=== PATIENT | female | born 1995 | race African-American/Black ===

== ENCOUNTER 2016-11-17 12:05 | Emergency (ER) | payer MEDICAID, OTHER ==
[~2016-11-17] VITALS: Ht 167.6 cm; Wt 61.5 kg
[~2016-11-17 12:05] MED LIST: CIPR500T4 PO; ELEC100080 PO; LOPE2CAP PO; ONDA4TAB8 PO
[2016-11-17 12:08] VITALS: Ht 167.6 cm; Wt 61.5 kg
[2016-11-17 12:55] LABS: ADD SCAN DIFF NO
[2016-11-17 12:59] LABS: ABNORMAL IP MESSAGE 1; BASOPHILS % 0.7 % (0.0-2.0); EOSINOPHILS % 0.7 % (0.0-7.0); HEMATOCRIT 35.3 % (37.0-47.0); HEMOGLOBIN 12.2 g/dl (12.0-16.0); LYMPHOCYTES % 45.7 % (15.0-51.0); MEAN CORPUSCULAR HEMOGLOBIN 30.7 pg (29.0-33.0); MEAN CORPUSCULAR HGB CONC 34.6 g/dl (32.0-37.0); MEAN CORPUSCULAR VOLUME 88.9 fl (82.0-101.0); MEAN PLATELET VOLUME 12.9 fl (7.4-10.4); MONOCYTE # 0.2 10^3/ul (0.3-0.9); MONOCYTES % 4.6 % (0.0-11.0); NEUTROPHIL # 2.1 10^3/ul (1.6-7.5); NEUTROPHILS % 48.1 % (39.0-77.0); PLATELET COUNT 114 10^3/UL (140-415); RED BLOOD COUNT 3.97 10^6/ul (4.20-5.40); RED CELL DISTRIBUTION WIDTH 13.4 % (11.5-14.5); WHITE BLOOD COUNT 4.3 10^3/ul (4.8-10.8)
[2016-11-17 12:59] LABS: ADD UMIC YES; URINE BILIRUBIN (Dip) NEGATIVE (NEGATIVE); URINE BLOOD (Dip) NEGATIVE (NEGATIVE); URINE COLOR LT. YELLOW (YELLOW); URINE GLUCOSE (Dip) NEGATIVE (NEGATIVE); URINE KETONES (Dip) NEGATIVE (NEGATIVE); URINE LEUKOCYTE ESTERASE (Dip) NEGATIVE (NEGATIVE); URINE NITRITE (Dip) POSITIVE (NEGATIVE); URINE TOTAL PROTEIN (Dip) NEGATIVE (NEGATIVE); URINE UROBILINOGEN (Dip) 1.0 E.U./dL (0.1-1.0)
[2016-11-17 13:14] LABS: BACTERIA,URINE MANY; URINE RBCS 0-2 /HPF (0)
[2016-11-17 13:26] LABS: ALBUMIN 4.7 g/dl (3.3-4.9); ALBUMIN/GLOBULIN RATIO 1.8; BILIRUBIN,INDIRECT 0.7 mg/dl (0-1.1); BILIRUBIN,TOTAL 0.7 mg/dl (0.2-1.3); CALCIUM 9.3 mg/dl (8.4-10.2); CREATININE 0.89 mg/dl (0.44-1.00); POTASSIUM 3.7 mmol/L (3.5-5.1); TOTAL PROTEIN 7.3 g/dl (6.1-8.1)
--- NOTE | 2016-11-17 13:44 | ERD ---
ER Documentation Chief Complaint Date/Time DATE: 11/17/16 TIME: 13:42 Chief Complaint Flank pain HPI 20-year-old female who is 3 approximately 4-5 weeks comes emergency department with right-sided flank pain that started 3 days ago. She states that it started suddenly, has gradually decreasing pain and she also has right-sided pelvic pain. She was seen by an outside facility who referred to emergency department for evaluation of the as well as for an ultrasound the kidneys. She denies any hematuria, vaginal bleeding. She denies dysuria, urgency or frequency. No fevers or chills. ROS All systems reviewed and are negative except as per history of present illness. Medications Home Meds Active Scripts Cephalexin* (Keflex*) 500 Mg Capsule, 500 MG PO TID for 7 Days, CAP Prov:ERYN HDZ PA-C 11/17/16 Loperamide Hcl* (Imodium*) 2 Mg Capsule, 2 MG PO .WITH EACH DIARRHEA Y for DIARRHEA for 3 Days, CAP MAX 16 mg/day Prov:COLLETTE TEJADA 01/29/16 Ciprofloxacin Hcl* (Ciprofloxacin Hcl*) 500 Mg Tablet, 500 MG PO BID for 5 Days , #14 TAB Prov:COLLETTE TEJADA 01/29/16 Electrolyte,Oral (Pedialyte) 1,000 Ml Solution, 100 ML PO Q6 Y for DIARRHEA for 3 Days, ML Prov:COLLETTE TEJADA 01/29/16 Ondansetron Hcl* (Zofran*) 4 Mg Tablet, 4 MG PO Q6H for NAUSEA AND/OR VOMITING, #30 TAB Prov:COLLETTE TEJADA 01/29/16 Allergies Allergies: Coded Allergies: No Known Allergy (Verified Allergy, Unknown, 03/02/11) PMhx/Soc History of Surgery: No Anesthesia Reaction: No Hx Neurological Disorder: No Hx Respiratory Disorders: No Hx Cardiac Disorders: Yes (HTN ) Hx Psychiatric Problems: No Hx Miscellaneous Medical Probl: No Hx Alcohol Use: No Hx Substance Use: No Hx Tobacco Use: Yes Smoking Status: Current every day smoker Physical Exam Vitals Vital Signs Date Time Temp Pulse Resp B/P Pulse Ox O2 Delivery O2 Flow Rate FiO2 11/17/16 12:08 97.3 77 20 103/57 98 Physical Exam General: Well-developed, well-nourished. The patient appears in no acute distress. HEENT: Head is normocephalic, atraumatic. No scleral icterus. Neck: Supple. Nontender. Lungs: Clear to auscultation. Normal air movement. Heart: Regular rate and rhythm. S1 and S2 are normal. No murmurs, gallops, or rubs. Abdomen: Soft, McBurney's nontender, there is tenderness in the right pelvic region, without rebound pain, no masses nondistended. Bowel sounds are normoactive. No CVA tenderness. Extremities: No clubbing or cyanosis. Normal pulses. Moving extremities x 4. No weakness. Neurologic: Alert and oriented 3. No focal deficits. Skin: Normal turgor. No rash or lesions. Result Diagram: 11/17/16 1236 11/17/16 1236 Results 24 hrs Laboratory Tests Test 11/17/16 12:36 11/17/16 12:38 White Blood Count 4.310^3/ul Red Blood Count 3.9710^6/ul Hemoglobin 12.2g/dl Hematocrit 35.3% Mean Corpuscular Volume 88.9fl Mean Corpuscular Hemoglobin 30.7pg Mean Corpuscular Hemoglobin Concent 34.6g/dl Red Cell Distribution Width 13.4% Platelet Count 21624^3/UL Mean Platelet Volume 12.9fl Neutrophils % 48.1% Lymphocytes % 45.7% Monocytes % 4.6% Eosinophils % 0.7% Basophils % 0.7% Nucleated Red Blood Cells % 0.0/100WBC Neutrophils # 2.110^3/ul Lymphocytes # 2.010^3/ul Monocytes # 0.210^3/ul Eosinophils # 0.010^3/ul Basophils # 0.010^3/ul Nucleated Red Blood Cells # 0.010^3/ul Sodium Level 145mmol/L Potassium Level 3.7mmol/L Chloride Level 109mmol/L Carbon Dioxide Level 25mmol/L Anion Gap 15 Blood Urea Nitrogen 11mg/dl Creatinine 0.89mg/dl Glucose Level 74mg/dl Calcium Level 9.3mg/dl Total Bilirubin 0.7mg/dl Direct Bilirubin 0.00mg/dl Indirect Bilirubin 0.7mg/dl Aspartate Amino Transf (AST/SGOT) 20IU/L Alanine Aminotransferase (ALT/SGPT) 30IU/L Alkaline Phosphatase 44IU/L Total Protein 7.3g/dl Albumin 4.7g/dl Globulin 2.60g/dl Albumin/Globulin Ratio 1.80 Lipase 72U/L Beta HCG, Quantitative 751.0mIU/ml Urine Color LT. YELLOW Urine Clarity CLEAR Urine pH 6.0 Urine Specific [place] 1.025 Urine Ketones NEGATIVE Urine Nitrite POSITIVE Urine Bilirubin NEGATIVE Urine Urobilinogen 1.0 E.U./dL Urine Leukocyte Esterase NEGATIVE Urine Microscopic RBC 0-2/HPF Urine Microscopic WBC 2-5/HPF Urine Epithelial Cells FEW Urine Bacteria MANY Urine Hemoglobin NEGATIVE Urine Glucose NEGATIVE% Urine Total Protein NEGATIVE Current Medications Medications (Trade) Dose Ordered Sig/Brad Route PRN Reason Start Time Stop Time Status Last Admin Dose Admin Ceftriaxone Sodium (Rocephin) 1 gm ONCE ONCE IM 11/17/16 14:00 11/17/16 14:01 DC 11/17/16 14:22 Lidocaine (Xylocaine 1% (Mdv) 20 ml) 2 ml ONCE ONCE IM 11/17/16 14:00 11/17/16 14:01 DC 11/17/16 14:23 PROCEDURE: US Pelvis/OB. CLINICAL INDICATION: vaginal bleeding TECHNIQUE: Multiple sonographic images of the pelvis were obtained utilizing a transabdominal and endovaginal technique. The images were reviewed on a PACS workstation. COMPARISON: None. FINDINGS: There is a small cystic structure within the endometrium measuring 0.3 cm which would correspond to a calculated gestational age of 5 weeks and 0 days. No pole or yolk sac is yet visualized. The right ovary measures 2.3 x 2.5 x 3.7 cm. There is a 2.5 cm simple cyst in the right ovary. The left ovary measures 2.3 x 2.7 x 1.8 cm. There is a small amount of free fluid in the cul-de-sac. RPTAT: AA IMPRESSION: Questionable early intrauterine at 5 weeks and 0 days. Close followup ultrasound and hCG is recommended. Simple cyst in the right ovary. Small amount of free fluid in the cul-de-sac. .James Lazo MD, MD Date Time Electronically viewed and signed by .James Lazo MD, MD on 11/17/2016 14: 42 .S/ CC: ERYN HDZ PA-C PROCEDURE: Retroperitoneal US. CLINICAL INDICATION: Right flank pain TECHNIQUE: Multiple sonographic images of the retroperitoneum were obtained. The images were reviewed on a PACS workstation. COMPARISON: No prior studies are available for comparison. FINDINGS: The right kidney measures 9.5 cm. The left kidney measures 9.7 cm. The renal parenchymal echotexture is normal. There is no hydronephrosis. There is no focal renal mass or calcification seen. The bladder is underdistended which limits evaluation though grossly unremarkable. IMPRESSION: Unremarkable retroperitoneal sonogram. No hydronephrosis bilaterally. RPTAT: EE Physician Storm Date Time Electronically viewed and signed by Physician Storm on 11/17/2016 13:52 RA/ Procedures/MDM 20-year-old female comes in with right-sided flank pain, she is currently likely an early . Patient's hCG was less than 800, there was a right ovarian cyst, possible intrauterine gestational sac seen, no pole or yolk sac. There is no confirm intrauterine at this time, cannot rule out ectopic . This was discussed at length with the patient, she understands that she is to recheck in 1-2 days. Her urine does show nitrite positive urine, which can explain her flank pain, she was given Rocephin 1 g IM in the emergency department will be continued on Keflex. She does not show any clinical signs of sepsis, dehydration, or toxic appearance. At this time, all ER return precautions were discussed at length and she understands that she is to return sooner if any worsening or new symptoms. This patient is stable for outpatient management. Departure Diagnosis: Primary Impression: UTI (urinary tract infection) Additional Impressions: Pelvic pain Positive blood test Condition: Good ERYN HDZ PA-C Nov 17, 2016 13:44
--- NOTE | 2016-11-17 13:52 | RADRPT ---
PROCEDURE: Retroperitoneal US. CLINICAL INDICATION: Right flank pain TECHNIQUE: Multiple sonographic images of the retroperitoneum were obtained. The images were revi ewed on a PACS workstation. COMPARISON: No prior studies are available for comparison. FINDINGS: The right kidney measures 9.5 cm. The left kidney measures 9.7 cm. The renal parenchymal echotexture is normal. There is no hydronephrosis. There is no focal renal mass or calcification seen. The bladder is underdistended which limits evaluation though grossly unremarkable. IMPRESSION: Unremarkable retroperitoneal sonogram. No hydronephrosis bilaterally. RPTAT: EE Physician Storm Date Time Electronically viewed and signed by Physician Storm on 11/17/2016 13:52 /
[2016-11-17] MEDS ORDERED: CEFTRIAXONE 1 GM INJ IM ONE (14:00)
[2016-11-17] MEDS ORDERED: LIDOCAINE 1% (MDV) 20 ML INJ IM ONE (14:00)
--- NOTE | 2016-11-17 14:43 | RADRPT ---
PROCEDURE: US Pelvis/OB. CLINICAL INDICATION: vaginal bleeding TECHNIQUE: Multiple sonographic images of the pelvis were obtained utilizing a transabdominal and endovaginal technique. The images were reviewed on a PACS workstation. COMPARISON: None. FINDINGS: There is a small cystic structure within the endometrium measuring 0.3 cm which would correspond to a calculated gestational age of 5 weeks and 0 days. No pole or yolk sac is yet visualized. The right ovary measures 2.3 x 2.5 x 3.7 cm. There is a 2.5 cm simple cyst in the right ovary. The left ovary measures 2.3 x 2.7 x 1.8 cm. There is a small amount of free fluid in the cul-de-sac. RPTAT: AA IMPRESSION: Questionable early intrauterine at 5 weeks and 0 days. Close followup ultrasound and hCG is recommended. Simple cyst in the right ovary. Small amount of free fluid in the cul-de-sac. .James Lazo MD, MD Date Time Electronically viewed and signed by .James Lazo MD, on 11/17/2016 14:42 .S/
[2016-11-17] MEDS ORDERED: CEPH-443 PO (15:05)
== END 2016-11-17 15:12 | disposition home or self-care (01) ==
LOC: FTE 12:05
DX: O23.41 Unspecified infection of urinary tract in pregnancy, first trimester (principal); R10.2 Pelvic and perineal pain; O10.011 Pre-existing essential hypertension complicating pregnancy, first trimester; O99.331 Smoking (tobacco) complicating pregnancy, first trimester; F17.210 Nicotine dependence, cigarettes, uncomplicated; Z3A.01 Less than 8 weeks gestation of pregnancy
CPT/HCPCS: 36415; 76775; 76801; 76817; 80053; 81001; 83690; 84702; 85025; 96372; J0696; Z7502; Z7610

== ENCOUNTER 2017-04-18 13:49 | Outpatient (CLI) | END 2017-04-18 16:47 | disposition home or self-care (01) ==

== ENCOUNTER 2017-04-30 22:08 | Outpatient (CLI) | payer OTHER ==
--- NOTE | 2017-04-18 17:19 | PN ---
Triage Information Date/Time April 19, 2017 Reason for visit: Nausea and vomiting, constipation that turned to diarrhea and currently resolved Weeks of Gestation 21-year-old with IUP at 26 weeks and 2 days with care at outside facility presents with a complaint of nausea and vomiting and constipation that currently resolved. Reports constipation was 2 days ago and then subsequently had diarrhea and resolved. Denies any fever or chills. Denies any vaginal bleeding, leaking of fluid or abnormal uterine bleeding. Denies any decreased movement or any obstetrical problem. /Para 3 para 1 Diabetes: none Hypertention: none Objective Heart Rate: 130's Contractions: None Exam GA: A&O, NAD Abdomen: soft, Non tender no rebound tenderness, no guarding no rigidity, no evidence of acute abdomen Fundal height consistent with gestational age No CVA tenderness No suprapubic tenderness NST: Appropriate for gestational age no contraction palpable or seen on the monitor Results/Medications Imaging Results PROCEDURE: Limited obstetric ultrasound CLINICAL INDICATION: Pain , labor TECHNIQUE: Multiple transverse and longitudinal grayscale images of the pelvis were obtained transabdominally and transvaginally.. COMPARISON: None FINDINGS: The cervix is closed with a length of 4.5 cm. There is a single viable intrauterine gestation. Cardiac activity is present with 144 beats per minute. There is a vertex presentation. The placenta is anterior. There is no evidence for an abruption or placenta previa. RPTAT: AA IMPRESSION: Cervix length measures 4.5 cm. PROCEDURE: Retroperitoneal US. CLINICAL INDICATION: Right flank pain TECHNIQUE: Multiple sonographic images of the retroperitoneum were obtained. The images were reviewed on a PACS workstation. COMPARISON: No prior studies are available for comparison. FINDINGS: The right kidney measures 9.5 cm. The left kidney measures 9.7 cm. The renal parenchymal echotexture is normal. There is no hydronephrosis. There is no focal renal mass or calcification seen. The bladder is underdistended which limits evaluation though grossly unremarkable. IMPRESSION: Unremarkable retroperitoneal sonogram. No hydronephrosis bilaterally. RPTAT: EE Disposition: Discharge Assessment/Plan IUP at 26 weeks and 2 days Nausea and vomiting with diarrhea. Likely related to viral gastroenteritis Diarrhea resolved Labs are normal and unremarkable No obstetrical issue No evidence of labor Patient received Zofran, could tolerate p.o. will be discharged home with Zofran prescription Strict labor precaution and kick counts and follow-up with OB clinic within 24-48 hours and adequate hydration discussed with the patient Patient verbalized understanding Return to triage as needed any other problem JAQUELINE WYMAN MD Apr 18, 2017 17:19
[~2017-04-30] VITALS: Ht 162.6 cm; Wt 69.4 kg
[2017-04-30 22:18] VITALS: Ht 162.6 cm; Wt 69.4 kg
--- NOTE | 2017-04-30 22:52 | RADRPT ---
PROCEDURE: OB ultrasound CLINICAL INDICATION: Labor TECHNIQUE: Multiple transverse and longitudinal OB images of the pelvis were obtained. The images were reviewed on a high-resolution PACS workstation. COMPARISON: None FINDINGS: A single live intrauterine is seen. The presentation is vertex. The placenta is grade 1 a nd anterior in location. No evidence of placenta abruption or previa is seen. The heart rate i s 135 beats per minute. The amniotic fluid index is 14.7 cm. movement 2 tone 2 breathing 2 Amniotic fluid 2 IMPRESSION: Biophysical profile of 01/16. RPTAT: HPNM Physician Didi Date Time Electronically viewed and signed by Physician Didi on 04/30/2017 22:51 /
--- NOTE | 2017-04-30 22:53 | RADRPT ---
PROCEDURE: US OB. CLINICAL INDICATION: Labor TECHNIQUE: Multiple sonographic images of the pelvis were obtained. The images were reviewed on a PACS workstation. COMPARISON: No prior studies are available for comparison. FINDINGS: There is a single viable intrauterine gestation. Cardiac activity is present with 137 beats per min barbie. There is a vertex presentation. Measurements were made in order to determine age. The results are as follows: BPD =7.3 cm HC =26.7 cm AC =26.4 cm FL =5.4 cm. Estimated gestational age of approximately 28 weeks and 0-day. The estimated date of delivery is 07/13/2017. The EFW = 1446 grams. The placenta is anterior. There is no evidence for an abruption or placenta previa. There are no adnexal masses. IMPRESSION: Single live intrauterine with an estimated gestational age of 28 weeks and 0-day. RPTAT: HPNM Physician Didi Date Time Electronically viewed and signed by Physician Didi on 04/30/2017 22:53 /
[2017-05-01 00:45] LABS: ADD UMIC NO; UR ASCORBIC ACID NEGATIVE (NEGATIVE); UR BILIRUBIN (Dip) NEGATIVE (NEGATIVE); UR BLOOD (Dip) NEGATIVE (NEGATIVE); UR CLARITY CLEAR (CLEAR); UR COLOR STRAW (YELLOW); UR GLUCOSE (Dip) NEGATIVE (NEGATIVE); UR KETONES (Dip) NEGATIVE (NEGATIVE); UR LEUKOCYTE ESTERASE (Dip) NEGATIVE Leu/ul (NEGATIVE); UR NITRITE (Dip) NEGATIVE (NEGATIVE); UR SPECIFIC GRAVITY (Dip) 1.002 (1.003-1.030); UR TOTAL PROTEIN (Dip) NEGATIVE (NEGATIVE); UR UROBILINOGEN (Dip) NEGATIVE (NEGATIVE)
[2017-05-01] MEDS ORDERED: PREN1TAB79 PO (01:54)
[2017-05-01 02:19] LABS: BARBITURATES Negative (NEGATIVE); BENZODIAZEPINES Negative (NEGATIVE); CANNABINOIDS Positive (NEGATIVE); COCAINE Negative (NEGATIVE); OPIATES Negative (NEGATIVE)
--- NOTE | 2017-05-01 03:23 | TRIAGE ---
OB Triage Datetime Report Generated by CPN: 05/01/2017 03:23 Datetime: 05/01/2017 02:55 Stage of : OB Triage Datetime: 05/01/2017 02:45 Stage of : OB Triage Datetime: 05/01/2017 02:43 Stage of : OB Triage Labor Evaluation Frequency: OCC Monitor Mode: External Duration (sec)2399: 60 Quality: Mild Pattern: Normal: <= 5 Contractions in 10 Minutes Heart Rate FHR Baseline Rate: 135 Monitor Mode: External US Variability: Moderate 6-25 bpm Accelerations: 15X15 Decelerations: None Datetime: 05/01/2017 02:40 Stage of : OB Triage Datetime: 05/01/2017 02:10 Stage of : OB Triage Labor Evaluation Frequency: X5 Monitor Mode: External Duration (sec)2399: 60-80 Quality: Mild Pattern: Normal: <= 5 Contractions in 10 Minutes Resting Tone [place]: Relaxed Heart Rate FHR Baseline Rate: 135 Variability: Moderate 6-25 bpm Accelerations: 15X15 Decelerations: None Category: Category I Datetime: 05/01/2017 02:08 Monitor Mode: External Monitor Mode: External US Datetime: 05/01/2017 01:15 Stage of : OB Triage Labor Evaluation Frequency: OCCA Monitor Mode: External Duration (sec)2399: 60 Heart Rate FHR Baseline Rate: 135 Variability: Moderate 6-25 bpm Accelerations: 10X10 Comments: APPROPRIATE FOR GESTATIONAL AGE Datetime: 04/30/2017 23:52 Labor Evaluation Frequency: IRRITABILITY NOTED Heart Rate FHR Baseline Rate: 135 Variability: Moderate 6-25 bpm Accelerations: 15X15 Comments: DIFFICULTY MONITORING BABY D/T INCREASE MOVEMENT. Datetime: 04/30/2017 22:35 Stage of : OB Triage Labor Evaluation Frequency: X1 Monitor Mode: External Duration (sec)2399: 120 Resting Tone [place]: Relaxed Heart Rate FHR Baseline Rate: 135 Monitor Mode: External US Variability: Moderate 6-25 bpm Accelerations: 15X15 Decelerations: None Comments: APPROPRIATE FOR GESTATIONAL AGE Datetime: 04/30/2017 22:25 Time of Arrival: 04/30/2017 21:52 EGA: 28.0 Arrived By: Wheelchair Arrived From: Home Chief Complaint: VAGINAL PAIN AFTER SEX, VAGINAL IRRITATION AND SWELLING Movement: Present Contractions: Occasional Rupture of Membranes: Denies Vaginal Discharge: Denies Recent Sexual Intercouse: Yes Abdominal Trauma: Not Applicable Patient Complaints: Other Time Provider Notified: 04/30/2017 22:17 Provider Notified: DR. MALONE Initial Plan: EFM, CALL OB Datetime: 04/30/2017 22:15 Stage of : OB Triage Assessment Type: Triage Maternal Assessment Level of Consciousness: Fully Conscious DTR's/Clonus: DTRs 2+; No Clonus Headache: Denies Blurred Vision: No Respiratory Effort: Unlabored; Regular Rhythm; Equal Expansion Breath Sounds, Left: Clear and Equal Breath Sounds, Right: Clear and Equal Nausea/Vomiting: Denies RUQ Epigastric Pain: Denies Lower Extremities Edema: None Degree: None Upper Extremities Edema: None Degree: None Facial Edema: None Temperature Route: Oral Fall Risk Assessment History of Falling: (0) No Secondary Diagnosis: (0) No Ambulatory Aid: (0) Bedrest/Nurse Assist IV Therapy: (0) No Gait: (0) Normal/Bedrest/Immobile Mental Status: (0) Oriented to Own Ability Fall Score: 0 Fall Risk Score Definition: No Risk: No action required Pain Assessment Pain Scale: 7 Pain Presence: Constant Pain Location: VAGINAL PAIN Pain Relief Measures: Comfort Measures Datetime: 04/30/2017 22:09 Contraction Comments: APPLIED Comments: APPLIED Datetime: 04/18/2017 16:01 Stage of : OB Triage Maternal Assessment Level of Consciousness: Fully Conscious Labor Evaluation Frequency: NONE Monitor Mode: External Resting Tone [place]: Relaxed Heart Rate FHR Baseline Rate: 135 Monitor Mode: External US Variability: Moderate 6-25 bpm Accelerations: 15X15 Decelerations: None Pain Assessment Pain Scale: 0 Pain Goal: 3 Vaginal Exam Membrane Status: Intact Vaginal Bleeding: None Datetime: 04/18/2017 14:43 Stage of : OB Triage Maternal Assessment Level of Consciousness: Fully Conscious Labor Evaluation Frequency: NONE Monitor Mode: External Resting Tone [place]: Relaxed Heart Rate FHR Baseline Rate: 135 Monitor Mode: External US Variability: Moderate 6-25 bpm Accelerations: 15X15 Decelerations: None Pain Assessment Pain Scale: 0 Pain Goal: 3 Vaginal Exam Membrane Status: Intact Vaginal Bleeding: None Datetime: 04/18/2017 14:02 Assessment Type: Triage Maternal Assessment Level of Consciousness: Fully Conscious DTR's/Clonus: DTRs 2+; No Clonus Headache: Denies Blurred Vision: No Respiratory Effort: Unlabored; Regular Rhythm; Equal Expansion Breath Sounds, Left: Clear and Equal Breath Sounds, Right: Clear and Equal Nausea/Vomiting: Denies RUQ Epigastric Pain: Denies Lower Extremities Edema: None Degree: None Upper Extremities Edema: None Degree: None Facial Edema: None Fall Risk Assessment History of Falling: (0) No Secondary Diagnosis: (0) No Ambulatory Aid: (0) Bedrest/Nurse Assist IV Therapy: (0) No Gait: (0) Normal/Bedrest/Immobile Mental Status: (0) Oriented to Own Ability Fall Score: 0 Fall Risk Score Definition: No Risk: No action required Datetime: 04/18/2017 14:01 EGA: 26.2 Datetime: 04/18/2017 14:00 Time of Arrival: 04/18/2017 13:32 Arrived By: Ambulatory Arrived From: Home Chief Complaint: PT HERE C/O VOMMITTING Movement: Present Contractions: Denies/Absent Rupture of Membranes: Denies Vaginal Bleeding: None Vaginal Discharge: Denies Recent Sexual Intercouse: Denies Abdominal Trauma: Not Applicable Patient Complaints: None Time Provider Notified: 04/18/2017 14:20 Provider Notified: KIRA Initial Plan: CBC/UA/PO HYDRATION/ZOFRAN/ U/S CVL.
--- NOTE | 2017-05-01 08:09 | PN ---
Triage Information Date/Time Reason for visit: vulvar pain, swelling and irritation after having sex Weeks of Gestation 28 /Para Diabetes: none Hypertention: none Additional information 21 Year-old with SIUP at 28 weeks presents with a chief complaint of vulvar pain, swelling and irritation after having sex. She has h/o drug use, chlamydia infection and preeclampsia. She states good movement. She denies nausea, vomiting, shortness of breath, chest pain, abdominal pain, contractions, headache, visual changes, vaginal bleeding or LOF. Objective Heart Rate: 140's Contractions: None Exam General: Patient appears well, alert and oriented, NAD, appropriate mood and affect ABD: gravid, soft, non-tender. Back: No CVA tenderness (B/L) LE: No clubbing, cyanosis, edema, thigh or calf tenderness bilaterally FHT: 140 bpm , moderate variability with acceleration, no deceleration-category I Contractions: None Vulva: Mild erythema Results/Medications Result Diagram: 04/30/17 0000 Disposition: Discharge Assessment/Plan 21 Year-old with SIUP at 28 weeks with vulvar pain, swelling and irritation after having sex - FHR: No sign of metabolic acidosis- Category I - Continuous EFM, toco - Contractions: None. - US performed with nml CL (5) - +UDS for THC, effect on discussed, cessation encouraged - Symptoms and sign of labor, preeclampsia, kick count discussed with patient, she voiced understanding. All of her questions answered. - Patient was discharged home in stable condition with the appropriate discharge instructions provided. Zinc oxide for ext genitalia ordered.I would like patient to have close follow-up with her primary physician or outpatient clinic in 1 wk or return to the ER for worsening symptoms or any other urgent concerns. ALISE OSEI May 01, 2017 08:09
== END 2017-05-01 03:00 | disposition home or self-care (01) ==
LOC: OBT 22:08 → L-D 22:09 → OBT 05-01 03:00
PROVIDERS: ATTEND Obstetrics & Gynecology
DX: O26.893 Other specified pregnancy related conditions, third trimester (principal); R10.2 Pelvic and perineal pain; N94.89 Other specified conditions associated with female genital organs and menstrual cycle; Z3A.28 28 weeks gestation of pregnancy
CPT/HCPCS: 36415; 76815; 76817; 76818; 80307; 81003; 85025; 86850; 86900; 86901; Z7500; G0463

== ENCOUNTER 2017-05-12 09:23 | Outpatient (CLI) | payer OTHER ==
[~2017-05-12] VITALS: Ht 162.6 cm; Wt 66.4 kg
[~2017-05-12 09:23] MED LIST changes: -CIPR500T4 PO; -ELEC100080 PO; -LOPE2CAP PO; -ONDA4TAB8 PO; +PREN1TAB79 PO
[2017-05-12 09:32] VITALS: Ht 162.6 cm; Wt 66.4 kg
[2017-05-12 09:33] VITALS: BP 115/64; PULSE 112; RESP 18
--- NOTE | 2017-05-12 10:25 | TRIAGE ---
OB Triage Datetime Report Generated by CPN: 05/12/2017 10:25 Datetime: 05/12/2017 10:10 Stage of : OB Triage Maternal Assessment Level of Consciousness: Fully Conscious Labor Evaluation Frequency: NONE Monitor Mode: External Resting Tone [place]: Relaxed Heart Rate FHR Baseline Rate: 135 Monitor Mode: External US Variability: Moderate 6-25 bpm Pain Assessment Pain Scale: 6 Pain Presence: Constant Pain Type: Ache Pain Location: Abdomen Pain Goal: 3 Membrane Status: Intact Vaginal Bleeding: None Datetime: 05/12/2017 09:53 Vaginal Exam Dilatation (cms): 0.0 Exam By: FOROOHAR Datetime: 05/12/2017 09:29 Assessment Type: Triage Maternal Assessment Level of Consciousness: Fully Conscious DTR's/Clonus: DTRs 2+; No Clonus Headache: Denies Blurred Vision: No Respiratory Effort: Unlabored; Regular Rhythm; Equal Expansion Breath Sounds, Left: Clear and Equal Breath Sounds, Right: Clear and Equal Nausea/Vomiting: Denies RUQ Epigastric Pain: Denies Lower Extremities Edema: None Degree: None Upper Extremities Edema: None Degree: None Facial Edema: None Fall Risk Assessment History of Falling: (0) No Secondary Diagnosis: (0) No Ambulatory Aid: (0) Bedrest/Nurse Assist IV Therapy: (0) No Gait: (0) Normal/Bedrest/Immobile Mental Status: (0) Oriented to Own Ability Fall Score: 0 Fall Risk Score Definition: No Risk: No action required Datetime: 05/12/2017 09:28 Time of Arrival: 05/12/2017 09:20 EGA: 29.5 Arrived By: Wheelchair Arrived From: Home Chief Complaint: pt here c/o LLQ ABD. PAIN Movement: Present Contractions: Denies/Absent Rupture of Membranes: Denies Vaginal Bleeding: None Vaginal Discharge: Denies Recent Sexual Intercouse: Denies Abdominal Trauma: Not Applicable Patient Complaints: None Time Provider Notified: 05/12/2017 09:45 [facility] Initial Plan: EFM/CBC/UA/CVL/BPP Datetime: 05/12/2017 09:26 Monitor Mode: External Monitor Mode: External US Datetime: 04/30/2017 22:25 EGA: 28.0 Datetime: 04/30/2017 22:15 Fall Score: 0 Fall Risk Score Definition: No Risk: No action required Datetime: 04/18/2017 14:02 Fall Score: 0 Fall Risk Score Definition: No Risk: No action required Datetime: 04/18/2017 14:01 EGA: 26.2
--- NOTE | 2017-05-12 10:47 | CONS ---
Date/Time of Note Date/Time of Note DATE: 05/12/17 TIME: 10:31 Consultation Date/Type/Reason Admit Date/Time May 12, 2017 OB triage consult note This patient is a 21 years old 3 para 1 1 living 1 who with the first child by spontaneous vaginal delivery. Her estimated date of confinement is July 17, [id number] which makes a 29 weeks and 5 days. She came in triage clinic complaining of fairly severe left lower quadrant pain. No nausea or vomiting. No vaginal bleeding or excessive discharge. In reviewing her record she is using THC as well as being a smoker no history of allergy, blood type O+ ,hepatitis B surface antigen nonreactive ,HIV nonreactive ,RPR not reactive ,she is immune to rubella, she had a positive chlamydia for which apparently she was treated.. On physical examination she is a normal -[place] patient with complaint is mostly on the left lower quadrant. Her general vital signs appear to be normal ,with blood pressure of 115/64, pulse rate of 112, respiration 18 ,temperature 98,, and oxygenation saturation at room temperature was 100%., . On examination of abdomen ,it was soft ,no contraction, bowel sounds were normal heart tone was normal the tracing was normal with fairly good variability occasional acceleration no decelerations. On palpation abdomen was soft, no contractions ,no rebound tenderness of the abdomen only tenderness on the left lower quadrant no tenderness on the right lower quadrant or upper abdomen. No CVA tenderness. Her chest was clear. I did a pelvic examination : vulva and vagina was normal, the cervix was closed there was no evidence of rupture membrane or bleeding. With these finding and we initiated the series of workup including CBC urinalysis ultrasound study Constitutional: No chills, No diaphoresis, No disoriented, No febrile, No improved, No no complaints, No other, No poor po, No requiring IVF, No requiring O2 Eyes: No discharge, No no complaints, No other, No pain, No redness, No visual change ENT: No bleeding, No congestion, No discharge, No dysphagia, No no complaints, No other, No pain, No sore throat Respiratory: No cough, No no complaints, No other, No pain, No pleuritic pain, No shortness of breath, No sputum, No wheezing Cardiovascular: No chest pain, No edema, No lightheadedness, No no complaints, No orthopenea, No other, No palpitations, No paroxysmal nocturnal dyspnea Gastrointestinal: other (As I mentioned no abdominal tenderness no rebound), No blood, No constipation, No decreased appetite, No diarrhea, No flatus, No nausea, No no complaints, No pain, No passing stool, No vomiting Genitourinary: other (Exam as I mentioned the cervix was closed no evidence of bleeding or rupture membrane), No bleeding, No discharge, No dysuria, No flank pain, No hematuria, No no complaints Skin: No bruising, No erythema, No laceration, No no complaints, No other, No pruritis, No rash, No skin lesions Neurologic: No confusion, No dizziness, No focal-weakness, No headache, No no complaints, No other, No seizure, No syncope Endocrine: No dry skin, No no complaints, No other, No polydypsia, No polyuria , No temp intolerance Lymphatic: No adenopathy, No lymphadema, No no complaints, No other, No tender nodes Psychological: No anxiety, No confusion, No depression, No nl mood/affect, No no complaints, No other, No suicidal Immunologic: No immunodeficiency, No no complaints, No other, No pruritis, No rhinitis, No urticaria Additional Comments The patient' male partner came to the room with bottles of dark radish color fluid In few minutes before starting of the ultrasound study patient apparently decided that she has absolutely no pain and wanted to go home and left the hospital AMA Social History Smoking Status: Current every day smoker Exam/Review of Systems Vital Signs Vitals Vital Signs Date Time Temp Pulse Resp B/P Pulse Ox O2 Delivery O2 Flow Rate FiO2 05/12/17 09:33 98.0 112 18 115/64 100 Room Air SIMON MELENDREZ MD May 12, 2017 10:41
== END 2017-05-12 10:11 | disposition left against medical advice (07) ==
LOC: OBT 09:23 → L-D 09:24 → OBT 10:11
PROVIDERS: ATTEND Obstetrics & Gynecology
DX: O26.893 Other specified pregnancy related conditions, third trimester (principal); R10.32 Left lower quadrant pain; O99.333 Smoking (tobacco) complicating pregnancy, third trimester; Z3A.29 29 weeks gestation of pregnancy; Z53.21 Procedure and treatment not carried out due to patient leaving prior to being seen by health care provider
CPT/HCPCS: G0463